=== PATIENT | male | born 1950 | race Caucasian/White ===

== ENCOUNTER → 2024-06-08 | Outpatient (CLI) | payer MEDICARE ==
[2024-06-08 13:46] LABS: BASO # 0.1 10*3/uL (0.0-0.1); BASO % 0.9 % (0.0-1.0); EOS # 0.4 10*3/uL (0.0-0.4); EOS % 6.3 % (1.0-4.0); HEMATOCRIT 44.6 % (42.0-52.0); MEAN CELL VOLUME 94.5 fl (80.0-94.0); MEAN CORPUSCULAR HGB 31.1 pg (27.0-31.0); MEAN PLATELET VOLUME 8.5 fl (9.6-12.3); MONO # 0.6 10*3/uL (0.1-1.0); MONO % 11.5 % (3.0-9.0); NEUT # 3.3 10*3/uL (2.3-7.9); NEUT % 60.2 % (47.0-73.0); PLATELET COUNT AUTOMATED 219 10*3/uL (130-400); RED BLOOD COUNT 4.72 10*6/uL (4.50-5.90); WHITE BLOOD COUNT 5.6 10*3/uL (4.8-10.8)
[2024-06-08 14:16] LABS: ALKALINE PHOSPHATASE 79 U/L (46-116); BUN 19 mg/dl (9-23); CHLORIDE 105 mmol/L (98-107); POTASSIUM 4.7 mmol/L (3.4-5.1); SGPT/ALT 21 U/L (5-49); TOTAL PROTEIN 7.3 gm/dL (6.0-8.0)
== END | disposition home or self-care (01) ==
LOC: LAB 13:02 → US 15:00
PROVIDERS: ATTEND Orthopaedic Surgery
DX: R60.0 Localized edema (principal); M79.651 Pain in right thigh; M25.551 Pain in right hip; R53.83 Other fatigue; Z96.641 Presence of right artificial hip joint